=== PATIENT | female | born 1940 | race Caucasian/White ===

== ENCOUNTER → 2024-11-15 13:07 | Outpatient (BNVA) | payer MEDICARE, SELFPAY | PROVIDERS: PCP Family Medicine; Referring Provider Family Medicine; Visit Provider Psychiatry & Neurology Neurology | DX: D32.9 Benign neoplasm of meninges, unspecified (principal); I63.9 Cerebral infarction, unspecified; G62.9 Polyneuropathy, unspecified; R26.89 Other abnormalities of gait and mobility; M79.672 Pain in left foot | CPT/HCPCS: 99205; 99417 ==

== ENCOUNTER → 2025-01-25 15:07 | Outpatient (BNVA) | payer MEDICARE, SELFPAY | PROVIDERS: PCP Family Medicine; Referring Provider Family Medicine; Visit Provider Psychiatry & Neurology Neurology | DX: D32.9 Benign neoplasm of meninges, unspecified (principal); I63.9 Cerebral infarction, unspecified; R26.89 Other abnormalities of gait and mobility; G62.9 Polyneuropathy, unspecified | CPT/HCPCS: 99213; 11104; 11105 ==